=== PATIENT | male | born 1950 | race Caucasian/White ===

== ENCOUNTER 2017-04-21 10:54 | Day surgery (SDC) | payer MEDICARE, OTHER ==
--- NOTE | 2017-04-21 11:15 | PCM.PREANE ---
Preanesthetic Assessment - Anesthesia/Transfusion/Family Hx Anesthesia History: Prior Anesthesia Without Reaction Family History of Anesthesia Reaction: No Transfusion History: No Prior Transfusion(s) Intubation History: Unknown - Review of Systems General: No Symptoms Pulmonary: No Symptoms Cardiovascular: No Symptoms Gastrointestinal: No symptoms Neurological: No Symptoms Other: Reports: None - Physical Assessment Height: 1.73 m Weight: 86.636 kg ASA Class: 2 Mental Status: Alert & Oriented x3 Airway Class: Mallampati = 2 Dentition: Reports: Normal Dentition Thyro-Mental Finger Breadths: 3 Mouth Opening Finger Breadths: 3 ROM/Head Extension: Full Lungs: Clear to auscultation, Normal respiratory effort Cardiovascular: Regular Rate, Regular Rhythm - Allergies Allergies/Adverse Reactions: Allergies Allergy/AdvReac Type Severity Reaction Status Date / Time No Known Allergies Allergy Verified 04/16/17 10:08 - Blood Blood Available: No - Anesthesia Plan Pre-Op Medication Ordered: None - Acknowledgements Anesthesia Type Planned: MAC Pt an Appropriate Candidate for the Planned Anesthesia: Yes Alternatives and Risks of Anesthesia Discussed w Pt/Guardian: Yes Pt/Guardian Understands and Agrees with Anesthesia Plan: Yes PreAnesthesia Questionnaire Gastrointestinal History: Reports: Colon Polyp Genitourinary History: Reports: Prostate Disorder (h/o prostate cancer, s/p prostatectomy 2010or 2011, followed by radiation therapy), Renal Calculus Oncologic (Cancer) History: Reports: Prostate - Past Surgical History Head Surgeries/Procedures: Reports: None GI Surgical History: Reports: Colonoscopy Male Surgical History: Reports: Prostatectomy Other Male Surgeries/Procedures: prostatectomy for prostate cancer - SUBSTANCE USE Smoking Status *Q: Former Smoker (quit years ago) Tobacco Use Within Last Twelve Months: No Recreational Drug Use History: No - HOME MEDS Home Medications: Home Meds . [No Known Home Meds] 04/16/17 [History]
[2017-04-21] MEDS ORDERED: Lactated Ringers 1,000 ML IV SCH ×2 (11:30→12:15)
[2017-04-21] MEDS ORDERED: Lidocaine 2% 5 ML SDV ONE (11:42)
[2017-04-21] MEDS ORDERED: Midazolam 1 MG/ML 2 ML SDV ONE (11:43)
[2017-04-21] MEDS ORDERED: fentaNYL 100 MCG/2 ML SDV ONE (11:43)
[2017-04-21] MEDS ORDERED: Propofol 200 MG/20 ML SDV ONE (11:43)
[2017-04-21] MEDS ORDERED: ePHEDrine 50 MG/ML SDV ONE (12:03)
--- NOTE | 2017-04-21 12:14 | PCM.OPNOTE ---
- General Post-Op/Procedure Note Date of Surgery/Procedure: 04/21/17 Operative Procedure(s): Colonoscopy with cold, sigmoid polypectomy, cecal and rectal biopsies. Pre Op Diagnosis: Personal history of colon polyps Post-Op Diagnosis: Sigmoid polyp. Sigmoid diverticulosis. Nonspecific cecal colitis. Proctitis. Anesthesia Technique: MAC (ASA II) Primary Surgeon: Neno Block Condition: Good Free Text/Narrative:: Dictation [id number] CPT CODE 08106
[2017-04-21 12:49] VITALS: BP 101/74
--- NOTE | 2017-04-21 18:48 | OR ---
SURGEON: Neno Block M.D. DATE OF PROCEDURE: 04/21/2017 OPERATION PERFORMED: 1. Colonoscopy with cecal biopsies. 2. Sigmoid polypectomy. 3. Rectal biopsy. ANESTHESIA: MAC. ASA CLASSIFICATION: II. PREOPERATIVE DIAGNOSIS: Personal history of colon polyps. POSTOPERATIVE DIAGNOSES: 1. Nonspecific cecal colitis. 2. Sigmoid polyp. 3. Proctitis. DESCRIPTION OF PROCEDURE: The patient was taken to the endoscopy room and positioned on the endoscopy table in the left lateral decubitus position. Time-out was called for appropriate identification of the patient and the procedure. Monitored anesthesia care was provided. The colonoscope was inserted into the rectum and advanced with minimal difficulty to the cecum. The cecum does show some nonspecific inflammatory changes and cecal biopsies were obtained. The colonoscope was retroflexed to visualize the ascending colon from below, then straightened and slowly withdrawn. The cecum, ascending colon, hepatic flexure, transverse colon, splenic flexure, descending colon, and sigmoid colon show no tumors. No angiodysplastic changes were noted. Sigmoid colon demonstrated a few scattered diverticula. One polyp was encountered in the distal sigmoid colon and removed with the cold biopsy forceps. The colonoscope was withdrawn to the rectum where again mild inflammatory changes were noted. Rectal biopsies were also obtained. The colonoscope was retroflexed to visualize the anal orifice from above. No tumors or polyps were seen. Chronic hemorrhoidal changes were noted. The colonoscope was then straightened, the rectum aspirated, and the colonoscope removed. The patient tolerated the procedure well and was taken to the recovery room in stable condition. JOLIE GILMORE /[id number]
== END 2017-04-21 12:50 | disposition home or self-care (01) ==
LOC: MW.SDS 10:54
PROVIDERS: ATTEND Surgery
PROC: 0DBH8ZX Excision of Cecum, Via Natural or Artificial Opening Endoscopic, Diagnostic (ICD-10-PCS; principal; 2017-04-21)
PROC: 0DBN8ZZ Excision of Sigmoid Colon, Via Natural or Artificial Opening Endoscopic (ICD-10-PCS; 2017-04-21)
PROC: 0DBP8ZX Excision of Rectum, Via Natural or Artificial Opening Endoscopic, Diagnostic (ICD-10-PCS; 2017-04-21)
DX: Z12.11 Encounter for screening for malignant neoplasm of colon (principal); K57.30 Diverticulosis of large intestine without perforation or abscess without bleeding; K64.9 Unspecified hemorrhoids; D12.5 Benign neoplasm of sigmoid colon; K52.9 Noninfective gastroenteritis and colitis, unspecified; K62.89 Other specified diseases of anus and rectum; I78.1 Nevus, non-neoplastic; E78.5 Hyperlipidemia, unspecified; N52.31 Erectile dysfunction following radical prostatectomy; Z87.19 Personal history of other diseases of the digestive system; Z85.46 Personal history of malignant neoplasm of prostate; Z87.442 Personal history of urinary calculi; Z87.891 Personal history of nicotine dependence; Z92.3 Personal history of irradiation; Z90.79 Acquired absence of other genital organ(s); Z98.890 Other specified postprocedural states
CPT/HCPCS: 45380; J2250; J3010; J7120; 88305; J2704

== ENCOUNTER 2022-05-09 06:43 | Day surgery (SDC) | payer MEDICARE, OTHER ==
[~2022-05-09 06:43] MED LIST: Lactated Ringers 1,000 ML IV SCH; Sodium Chloride 0.9% 10 ML Syringe FLUSH PRN; Sodium Chloride 0.9% 2.5 ML Syringe FLUSH PRN; Sodium Chloride 0.9% 20 ML SDV IV PRN
[2022-05-09] MEDS ORDERED: fentaNYL 100 MCG/2 ML SDV ONE (07:24)
[2022-05-09] MEDS ORDERED: Propofol 200 MG/20 ML SDV ONE (07:24)
[2022-05-09 09:30] VITALS: BP 111/73; PULSE 60
== END 2022-05-09 10:00 | disposition home or self-care (01) ==
LOC: MW.SDS 06:43
PROVIDERS: ATTEND Surgery
DX: Z12.11 Encounter for screening for malignant neoplasm of colon (principal); D12.2 Benign neoplasm of ascending colon; K57.30 Diverticulosis of large intestine without perforation or abscess without bleeding; E78.5 Hyperlipidemia, unspecified; K40.20 Bilateral inguinal hernia, without obstruction or gangrene, not specified as recurrent; D17.1 Benign lipomatous neoplasm of skin and subcutaneous tissue of trunk; Z98.890 Other specified postprocedural states; Z90.79 Acquired absence of other genital organ(s); Z87.891 Personal history of nicotine dependence
CPT/HCPCS: 45380; 88305; J2704; J3010; J7120; 00812; 99100

== ENCOUNTER 2022-05-21 10:40 | Day surgery (SDC) | payer MEDICARE, OTHER ==
[~2022-05-21 10:40] MED LIST changes: +Albuterol 0.083% 2.5 MG/3 ML Neb Soln NEB PRN; +Bupivacaine 0.5% 30 ML SDV ONE; +HYDROmorphone 1 MG/ML Syringe IVPUSH PRN; +Metoclopramide 10 MG/2 ML SDV IVPUSH PRN; +Naloxone 0.4 MG/ML SDV IVPUSH PRN; +Ondansetron 4 MG/2 ML SDV IVPUSH PRN; +ceFAZolin 2 GM in Premix Bag 1 BAG IV ONE; +fentaNYL 50 MCG/ML SDV IVPUSH PRN
[2022-05-21] MEDS ORDERED: fentaNYL 100 MCG/2 ML SDV ONE (10:55)
[2022-05-21] MEDS ORDERED: Propofol 200 MG/20 ML SDV ONE ×2 (10:55→13:17)
[2022-05-21] MEDS ORDERED: Rocuronium Bromide 50 MG/5 ML Syringe ONE (10:56)
[2022-05-21] MEDS ORDERED: Ropivacaine 0.5% 5 MG/ML 30 ML SDV ONE (10:56)
[2022-05-21] MEDS ORDERED: Lidocaine 2% 5 ML SDV ONE (10:57)
[2022-05-21] MEDS ORDERED: Metoclopramide 10 MG/2 ML SDV ONE (11:00)
[2022-05-21] MEDS ORDERED: Ondansetron 4 MG/2 ML SDV ONE ×2 (11:00→14:05)
[2022-05-21] MEDS ORDERED: Phenylephrine HCl In 0.9% NaCl 1 MG/10 ML Vial ONE (11:00)
[2022-05-21] MEDS ORDERED: Dexmedetomidine 200 MCG/2 ML SDV ONE (11:08)
[2022-05-21] MEDS ORDERED: ePHEDrine 50 MG/ML SDV ONE (11:46)
[2022-05-21] MEDS ORDERED: Dexamethasone 4 MG/ML 5 ML MDV ONE (12:04)
[2022-05-21] MEDS ORDERED: Sugammadex Sodium 200 MG/2 ML VIAL ONE (14:04)
[2022-05-21] MEDS ORDERED: Ketorolac 30 MG/ML SDV ONE (14:06)
[2022-05-21 17:17] VITALS: BP 113/61; PULSE 82
== END 2022-05-21 17:25 | disposition home or self-care (01) ==
LOC: MW.SDS 10:40
PROVIDERS: ATTEND Surgery
DX: D17.5 Benign lipomatous neoplasm of intra-abdominal organs (principal); D17.21 Benign lipomatous neoplasm of skin and subcutaneous tissue of right arm; K40.30 Unilateral inguinal hernia, with obstruction, without gangrene, not specified as recurrent; K40.90 Unilateral inguinal hernia, without obstruction or gangrene, not specified as recurrent; M87.811 Other osteonecrosis, right shoulder; Z98.890 Other specified postprocedural states; Z79.899 Other long term (current) drug therapy; Z79.52 Long term (current) use of systemic steroids; Z79.83 Long term (current) use of bisphosphonates
CPT/HCPCS: 11406; 22903; 49505; 49507; C1781; J0131; J0690; J1100; J1885; J2405; J2704; J2795; J3010; J3490; J7120; 00830; 64488; 88302; 88304; 99100; J2765